=== PATIENT | male | born 1975 ===

== ENCOUNTER 2017-11-21 01:22 | Day surgery (SDC) | payer MEDICARE, MEDICAID ==
[~2017-11-21] VITALS: Ht 170.2 cm; Wt 93.4 kg
[~2017-11-21 01:22] MED LIST: CETI10CA8 PO; DIPH-740 PO; GLIP-154 PO; GLYB1TAB47 PO; LEVE750T74 PO; LEVO-3 PO; LEVO75TA73 PO; LOR5/325 PO; METF-420 PO; OMEP-137 PO; SIMV-49 PO; SIMV-54 PO; SITA100T PO; ceFAZolin(*) 2GM/D5W 50ML 50 ML IVPB ONE
[2017-11-21] MEDS ORDERED: NORMOSOL R SOLN(*) 1000 ML BAG 1,000 ML IV PRN (06:00)
[2017-11-21] MEDS ORDERED: ceFAZolin(*) 2GM/D5W 50ML 50 ML IVPB ONE ×2 (06:00)
[2017-11-21] MEDS ORDERED: CELECOXIB 200 MG CAP PO ONE (06:00)
[2017-11-21] MEDS ORDERED: LIDOCAINE/SOD BICARB 8.4% SYR ID ONE (06:00)
[2017-11-21] MEDS ORDERED: MIDAZOLAM 2 MG/2 ML VIAL IVP PRN (06:00)
[2017-11-21 06:33] VITALS: BP 147/111
[2017-11-21] MEDS ORDERED: ROPIVACAINE 0.2% 20 ML VIAL ONE (06:33)
[2017-11-21] MEDS ORDERED: LIDOCAINE 2% MDV 400MG/20ML VL ONE (06:33)
[2017-11-21] MEDS ORDERED: PROPOFOL EMUL(*) 10MG/ML 20 ML 60 ML ONE (06:43)
[2017-11-21] MEDS ORDERED: LIDOCAINE MPF 1% 5 ML VIAL ONE (06:43)
[2017-11-21 07:35] VITALS: BP 132/91
[2017-11-21] MEDS ORDERED: HYDR-4309 PO (07:43)
[2017-11-21 08:14] VITALS: BP 122/92
[2017-11-21] MEDS ORDERED: ACETAMINOPHEN(*)1000 MG/100 ML 100 ML IVPB ONE (08:15)
[2017-11-21 08:45] VITALS: BP 127/86
[2017-11-21 09:12] VITALS: BP 133/87
[2017-11-21 09:14] VITALS: BP 139/100
--- NOTE | 2017-11-21 13:25 | OPERATIVE REPORT 1 ---
EVENT DATE: November 21, 2017 SURGEON: Marlo Zarate MD ANESTHESIOLOGIST: Denton Singleton MD ANESTHESIA: MAC plus local SPORTS STATISTICIAN: Heladio Mac PA-C PREOPERATIVE DIAGNOSIS Right third finger trigger finger. POSTOPERATIVE DIAGNOSIS Right third finger trigger finger. PROCEDURE PERFORMED Right third trigger finger release. FINDINGS The patient had a tight A1 micah at this area. ESTIMATED BLOOD LOSS Minimal. DRAINS None. COMPLICATIONS None. IMPLANTS None. SPECIMENS None. TOURNIQUET TIME 8 minutes. INDICATIONS AND HISTORY This patient is a 42-year-old male who presented to my clinic for evaluation of a right third finger which was locked into place. He had a trigger finger on the contralateral side, which we had released previously, and he said this worked out pretty well, and so he would like to have the right third finger released, as it was permanently locked down, and he did not think an infection would help, and I agreed. We went over the risks and benefits associated with this, an informed consent was obtained. We also talked about recurrence, especially since it was all the way locked down, and he understood that. DESCRIPTION OF PROCEDURE The patient was brought into the operating room. He and the procedure were both verified. He was placed supine on the operating table and given sedation by anesthesia. We then put in a 2% lidocaine block into the area of the trigger finger and the base of the finger of the middle finger. Then the right arm was prepped and draped in the usual fashion, and a time out was observed, verifying the correct patient and procedure. The standard incision was made after inflation of the tourniquet just over the flexor crease in this area just below the metacarpal head. This was taken through the skin and subcutaneous tissue until I identified the flexor sheath over the top. I was then able to release some of the flexor sheath proximally and then release the A1 micah with sharp dissection. This was then followed by placement of a small pair of scissors up into the A2 micah and releasing the leading edge of the A2 micah. There was a significant amount of adhesions between the two tendons, and so therefore I then released those by pulling those up through the skin and identifying those, and also a little bit more of a proximal adhesion. Once I did this, the tendons had good excursion throughout the area. There were no signs of catching or locking associated with this. There were no signs of triggering, and so therefore we irrigated with copious amounts of saline then closed the skin with a 4-0 nylon in interrupted mattress type fashion, and then the wound was dressed with Xeroform, gauze 4x4's and a soft dressing. Tourniquet was let down after 8 minutes, and the patient was awakened, extubated and transferred to PACU in stable condition. JANELLE
== END 2017-11-21 09:40 | disposition home or self-care (01) ==
LOC: OR 01:22
PROVIDERS: ATTEND Orthopaedic Surgery
DX: M65.331 Trigger finger, right middle finger (principal); E11.9 Type 2 diabetes mellitus without complications
CPT/HCPCS: 26055; 36416; 82948; 94667; A9270; J0131; J2001; J2704; J0690; J2795